=== PATIENT | female | born 1955 | race American Indian/Alaskan Native ===

== ENCOUNTER 2018-08-19 00:42 | Emergency (ER) | payer MEDICARE ==
--- NOTE | 2018-08-19 01:15 | EDM.PDOC ---
ED HPI GENERAL MEDICAL PROBLEM - General Chief Complaint: General Stated Complaint: MEDICAL VIA [facility] Time Seen by Provider: 08/19/18 01:07 Source of Information: Reports: Patient, RN Notes Reviewed History Limitations: Reports: No Limitations - History of Present Illness INITIAL COMMENTS - FREE TEXT/NARRATIVE: 63-year-old female presents emergency department today via EMS services. She was recently discharged from the hospital [facility] for community acquired pneumonia found to be hypoxic during exertion was placed on home O2. [place] she ran out of her oxygen had been out for about an hour realize she was low on oxygen she admits to having a panic attack called EMS services they transported her here for further evaluation. At this time she has no symptoms her oxygen saturation is 92-95 on room air. - Related Data Allergies Allergy/AdvReac Type Severity Reaction Status Date / Time No Known Allergies Allergy Verified 08/19/18 00:50 Home Meds: Home Meds Midodrine 20 mg PO TID 08/19/18 [History] Multivitamin [Multivitamins] 1 each PO DAILY 08/19/18 [History] Nut.Tx.Impaired Digest Fxn [Ensure Clear] 1 unit PO TID 08/19/18 [History] Omeprazole 40 mg PO ACBREAKFAST 08/19/18 [History] Pantoprazole Sodium [Protonix] 20 mg PO DAILY 08/19/18 [History] Sertraline HCl [Zoloft] 200 mg PO DAILY 08/19/18 [History] fentaNYL [Fentanyl] 1 each TD Q48H 08/19/18 [History] oxyCODONE HCl/Acetaminophen [Endocet 7.5-325 mg Tablet] 1 tab PO TID 08/19/18 [ History] Past Medical History HEENT History: Reports: Impaired Vision Respiratory History: Reports: Pneumonia, Recurrent, Other (See Below) Other Respiratory History: home O2 Gastrointestinal History: Reports: GERD, Other (See Below) Other Gastrointestinal History: Chrons Genitourinary History: Reports: UTI, Recurrent [employer]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: Musculoskeletal History: Reports: Back Pain, Chronic Psychiatric History: Reports: Depression Hematologic History: Reports: Anemia Oncologic (Cancer) History: Reports: Other (See Below) Other Oncologic History: multiple melanoma - Past Surgical History GI Surgical History: Reports: Cholecystectomy, Colonoscopy, EGD Social & Family History - Tobacco Use Smoking Status *Q: Never Smoker - Caffeine Use Caffeine Use: Reports: Coffee - Recreational Drug Use Recreational Drug Use: No ED ROS GENERAL - Review of Systems Review Of Systems: See Below Constitutional: Reports: No Symptoms Respiratory: Reports: No Symptoms Cardiovascular: Reports: Dyspnea on Exertion ED EXAM, GENERAL - Physical Exam Exam: See Below Exam Limited By: No Limitations General Appearance: Alert, WD/WN, No Apparent Distress Respiratory/Chest: No Respiratory Distress, Lungs Clear, Normal Breath Sounds, No Accessory Muscle Use, Chest Non-Tender Cardiovascular: Regular Rate, Rhythm, No Murmur Course - Vital Signs Last Recorded V/S: Last Vital Signs Temp 97.3 F 08/19/18 01:05 Pulse 81 08/19/18 01:05 Resp 18 08/19/18 01:05 BP 103/48 L 08/19/18 01:05 Pulse Ox 95 08/19/18 01:10 Departure - Departure Time of Disposition: 01:14 Disposition: Home, Self-Care 01 Condition: Fair Clinical Impression: Hypoxic - Discharge Information Referrals: PCP,None [Primary Care Provider] - Additional Instructions: Limit exertion until you cannot obtain your oxygen tanks, keep your follow-up appointment with your primary care on Monday - Assessment/Plan Plan: Assessment Acuity = acute Site and laterality = hypoxic event Etiology = secondary to oxygen tank emptying Manifestations = none Location of injury = Home Lab values = none Plan She remains very stable and asymptomatic on room air my suspicion is that she only requires oxygen under exertion, she asked for refill of oxygen unfortunately we do not provide that service. In her oxygen tanks are at home in the [facility] This note was dictated using [employer] voice recognition software please call with any questions on syntax or grammar.
== END 2018-08-19 02:15 | disposition home or self-care (01) ==
LOC: JP.ED 00:42
DX: R09.02 Hypoxemia (principal); K21.9 Gastro-esophageal reflux disease without esophagitis; F32.9 Major depressive disorder, single episode, unspecified; Z79.899 Other long term (current) drug therapy; Z90.49 Acquired absence of other specified parts of digestive tract
CPT/HCPCS: 99283